=== PATIENT | male | born 1995 | race Caucasian/White ===

== ENCOUNTER 2018-11-10 16:40 | Emergency (ER) | payer OTHER ==
[2018-11-10 16:49] VITALS: RESP 18
[2018-11-10] MEDS ORDERED: IPRATROPIUM-ALBUTEROL 3 ML NEB INHALATION STA (17:06)
[2018-11-10] MEDS ORDERED: SODIUM CHLORIDE 0.9% 500 ML 500 ML IV STA (17:07)
[2018-11-10] MEDS ORDERED: SODIUM CHLORIDE 0.9% 1,000 ML IV STA (17:07)
[2018-11-10] MEDS ORDERED: ONDANSETRON 4 MG/2 ML VIAL IVP STA (17:15)
--- NOTE | 2018-11-10 17:32 | ED ---
General Adult HPI - General Chief complaint: GI Bleed Stated complaint: diarrhea, nausea Time Seen by Provider: 11/10/18 17:00 Source: patient, RN notes reviewed, old records reviewed Mode of arrival: ambulatory Limitations: no limitations - History of Present Illness Initial comments: 22-year-old male patient with past medical history of left inguinal hernia status post repair presents to ED with approximately 2 days of nausea vomiting and diarrhea. Patient states that he has vomited approximately 5 times both today and yesterday. Patient states that he is having watery diarrhea approximately once to twice an hour. Patient reports that he had diarrhea with a mild amount of bright red blood approximately 3 times today. Patient states that he is having diffuse abdominal pain and cramping, nonlocalized last 2 days. Describes the pain as a cramping sensation. Pt complains of mild fever/ chills the last two days. Patient additionally complains of shortness of breath today. Pt denies chest pain. Patient reports that he works at a [employer] and has had recent exposure to both influenza and Clostridium difficile. Patient denies other complaints. Systemic: Pt denies rash. Pt denies weakness, night sweats, weight loss. Neuro: Pt denies headache, visual disturbances, syncope. HEENT: Pt denies ocular discharge or irritation, otalgia, rhinorrhea, pharyngitis or notable lymphadenopathy. Cardiopulmonary: Pt denies chest pain, SOB, heart palpitations, dyspnea on exertion. Abdominal/GI: Pt denies abdominal pain, n/v/d. : Pt denies dysuria, burning w/ urination, frequency/urgency. Denies new onset urinary or bowel incontinence. MSK: Pt denies myalgia, loss of strength or function in extremities. Neuro: Pt denies new onset weakness, paresthesias. - Related Data Home Medications Medication Instructions Recorded Confirmed Cholecalciferol (Vitamin D3) 2,000 unit PO DAILY 11/10/18 11/10/18 [Vitamin D3] Multivitamin,Therapeutic [Thera] 1 tab PO DAILY 11/10/18 11/10/18 Previous Rx's Medication Instructions Recorded Ondansetron Odt [Zofran ODT] 4 mg PO Q8HR PRN #20 tab 11/10/18 Allergies Allergy/AdvReac Type Severity Reaction Status Date / Time No Known Allergies Allergy Verified 11/10/18 17:27 Review of Systems ROS Statement: Those systems with pertinent positive or pertinent negative responses have been documented in the HPI. ROS Other: All systems not noted in ROS Statement are negative. Past Medical History Past Medical History: No Reported History Additional Past Medical History / Comment(s): migraines, arthritis in nancy ankles , History of Any Multi-Drug Resistant Organisms: C-DIFF Date of last positivie culture/infection: 2013 MDRO Source:: stool Past Surgical History: Hernia Repair, Orthopedic Surgery Additional Past Surgical History / Comment(s): RT ANKLE Past Anesthesia/Blood Transfusion Reactions: Motion Sickness Past Psychological History: No Psychological Hx Reported, Anxiety, Bipolar, Depression Smoking Status: Former smoker Past Alcohol Use History: None Reported Past Drug Use History: Marijuana - Past Family History Mother Family Medical History: No Reported History General Exam - General Exam Comments Initial Comments: Constitutional: NAD, AOX3. HEENT: NC/AT, trachea midline, neck supple, no lymphadenopathy. Posterior pharynx non erythematous, without exudates. External ears appear normal, without discharge. Mucous membranes moist. Eyes PERRLA, EOM intact. There is no scleral icterus. No pallor noted. Cardiopulmonary: RRR, no murmurs, rubs or gallops, no JVD noted. Lungs CTAB in anterior and posterior cross. No peripheral edema. Abdominal exam: Abdomen soft and non-distended. Abdomen mildly tender to palpation in suprapubic region. Bowel sounds active in LLQ. No hepatosplenomegaly. No ecchymosis. Mild amount of L flank tenderness. Neuro: CN II-XII grossly intact. No nuchal rigidity. MSK: No posterior calf tenderness bilaterally, homans sign negative bilaterally. Posterior tibialis and radial pulse +2 bilaterally. Sensation intact in upper and lower extremities. Full active ROM in upper and lower extremities, 5/5 stregnth. Limitations: no limitations Course Vital Signs 11/10/18 11/10/18 11/10/18 16:46 17:30 19:50 Temperature 98.5 F 98.1 F Pulse Rate 82 82 81 Respiratory 18 18 Rate Blood Pressure 131/84 136/80 O2 Sat by Pulse 100 100 Oximetry Medical Decision Making - Medical Decision Making 22-year-old male patient with past medical history of left inguinal hernia status post repair presents to ED with approximately 2 days of nausea vomiting and diarrhea. Patient states that he has vomited approximately 5 times both today and yesterday. Patient states that he is having watery diarrhea approximately once to twice an hour. Patient reports that he had diarrhea with a mild amount of bright red blood approximately 3 times today. Patient states that he is having diffuse abdominal pain and cramping, nonlocalized last 2 days. Describes the pain as a cramping sensation. Pt complains of mild fever/ chills the last two days. Patient additionally complains of mild shortness of breath today. Pt denies chest pain Pt denies all other complaints. Pt VSS, afebrile. Physical exam displayed: Abdomen soft and non-distended. Abdomen mildly tender to palpation in suprapubic region. Bowel sounds active in LLQ. No hepatosplenomegaly. No ecchymosis. Mild amount of L flank tenderness. Cardiopulmonary exam wnl. Laboratory investigations revealed non-impressive CBC. Hemoglobin 17.6, at baseline for patient. CMP non-impressive. D-dimer negative. UA noncompressive. Influenza negative, C. diff negative. Stool occult blood was positive. Chest x-ray displayed no acute process. EKG not concerning for acute ischemia. Patient improved with fluid hydration, Zofran. Patient not actively vomiting, not having any diarrhea. Patient tolerating by mouth intake in exam room. Patient comfortable with discharge. Patient to follow up with primary care provider tomorrow for continued evaluation of n/v and evaluation of possible rectal bleeding. Patient prescribed Zofran to use as needed for nausea. Patient educated at length about BRAT diet, verbalized understanding. Patient to return to ED if new signs symptoms develop or if conditions worsen in anyway. Case discussed at length and seen by Dr. Pacheco. - Lab Data Result diagrams: 11/10/18 17:30 11/10/18 17:30 Lab Results 11/10/18 11/10/18 11/10/18 Range/Units 17:30 17:30 17:30 WBC 9.4 (3.8-10.6) k/uL RBC 5.75 (4.30-5.90) m/uL Hgb 17.6 H (13.0-17.5) gm/dL Hct 51.4 (39.0-53.0) % MCV 89.4 (80.0-100.0) fL MCH 30.6 (25.0-35.0) pg MCHC 34.3 (31.0-37.0) g/dL RDW 12.7 (11.5-15.5) % Plt Count 159 (150-450) k/uL Neutrophils % 90 % Lymphocytes % 3 % Monocytes % 5 % Eosinophils % 1 % Basophils % 0 % Neutrophils # 8.4 H (1.3-7.7) k/uL Lymphocytes # 0.3 L (1.0-4.8) k/uL Monocytes # 0.5 (0-1.0) k/uL Eosinophils # 0.1 (0-0.7) k/uL Basophils # 0.0 (0-0.2) k/uL D-Dimer 0.19 (<0.60) mg/L FEU Sodium 139 (137-145) mmol/L Potassium 4.2 (3.5-5.1) mmol/L Chloride 106 (98-107) mmol/L Carbon Dioxide 22 (22-30) mmol/L Anion Gap 11 mmol/L BUN 12 (9-20) mg/dL Creatinine 0.73 (0.66-1.25) mg/dL Est GFR (CKD-EPI)AfAm >90 (>60 ml/min/1.73 sqM) Est GFR (CKD-EPI)NonAf >90 (>60 ml/min/1.73 sqM) Glucose 119 H (74-99) mg/dL Plasma Lactic Acid Stef (0.7-2.0) mmol/L Calcium 9.9 (8.4-10.2) mg/dL Total Bilirubin 1.4 H (0.2-1.3) mg/dL AST 20 (17-59) U/L ALT 29 (21-72) U/L Alkaline Phosphatase 68 (38-126) U/L Total Protein 7.3 (6.3-8.2) g/dL Albumin 4.7 (3.5-5.0) g/dL Amylase 65 (30-110) U/L Lipase 21 L (23-300) U/L Urine Color Urine Appearance (Clear) Urine pH (5.0-8.0) Ur Specific Buena (1.001-1.035) Urine Protein (Negative) Urine Glucose (UA) (Negative) Urine Ketones (Negative) Urine Blood (Negative) Urine Nitrite (Negative) Urine Bilirubin (Negative) Urine Urobilinogen (<2.0) mg/dL Ur Leukocyte Esterase (Negative) Stool Occult Blood (Negative) C. difficile (EIA) Intrp (Negative) Influenza Type A RNA (Not Detectd) Influenza Type B (PCR) (Not Detectd) 11/10/18 11/10/18 11/10/18 Range/Units 17:30 17:30 17:48 WBC (3.8-10.6) k/uL RBC (4.30-5.90) m/uL Hgb (13.0-17.5) gm/dL Hct (39.0-53.0) % MCV (80.0-100.0) fL MCH (25.0-35.0) pg MCHC (31.0-37.0) g/dL RDW (11.5-15.5) % Plt Count (150-450) k/uL Neutrophils % % Lymphocytes % % Monocytes % % Eosinophils % % Basophils % % Neutrophils # (1.3-7.7) k/uL Lymphocytes # (1.0-4.8) k/uL Monocytes # (0-1.0) k/uL Eosinophils # (0-0.7) k/uL Basophils # (0-0.2) k/uL D-Dimer (<0.60) mg/L FEU Sodium (137-145) mmol/L Potassium (3.5-5.1) mmol/L Chloride (98-107) mmol/L Carbon Dioxide (22-30) mmol/L Anion Gap mmol/L BUN (9-20) mg/dL Creatinine (0.66-1.25) mg/dL Est GFR (CKD-EPI)AfAm (>60 ml/min/1.73 sqM) Est GFR (CKD-EPI)NonAf (>60 ml/min/1.73 sqM) Glucose (74-99) mg/dL Plasma Lactic Acid Stef 1.8 (0.7-2.0) mmol/L Calcium (8.4-10.2) mg/dL Total Bilirubin (0.2-1.3) mg/dL AST (17-59) U/L ALT (21-72) U/L Alkaline Phosphatase (38-126) U/L Total Protein (6.3-8.2) g/dL Albumin (3.5-5.0) g/dL Amylase (30-110) U/L Lipase (23-300) U/L Urine Color Urine Appearance (Clear) Urine pH (5.0-8.0) Ur Specific Buena (1.001-1.035) Urine Protein (Negative) Urine Glucose (UA) (Negative) Urine Ketones (Negative) Urine Blood (Negative) Urine Nitrite (Negative) Urine Bilirubin (Negative) Urine Urobilinogen (<2.0) mg/dL Ur Leukocyte Esterase (Negative) Stool Occult Blood Positive (Negative) C. difficile (EIA) Intrp (Negative) Influenza Type A RNA Not Detected (Not Detectd) Influenza Type B (PCR) Not Detected (Not Detectd) 11/10/18 11/10/18 Range/Units 17:48 18:50 WBC (3.8-10.6) k/uL RBC (4.30-5.90) m/uL Hgb (13.0-17.5) gm/dL Hct (39.0-53.0) % MCV (80.0-100.0) fL MCH (25.0-35.0) pg MCHC (31.0-37.0) g/dL RDW (11.5-15.5) % Plt Count (150-450) k/uL Neutrophils % % Lymphocytes % % Monocytes % % Eosinophils % % Basophils % % Neutrophils # (1.3-7.7) k/uL Lymphocytes # (1.0-4.8) k/uL Monocytes # (0-1.0) k/uL Eosinophils # (0-0.7) k/uL Basophils # (0-0.2) k/uL D-Dimer (<0.60) mg/L FEU Sodium (137-145) mmol/L Potassium (3.5-5.1) mmol/L Chloride (98-107) mmol/L Carbon Dioxide (22-30) mmol/L Anion Gap mmol/L BUN (9-20) mg/dL Creatinine (0.66-1.25) mg/dL Est GFR (CKD-EPI)AfAm (>60 ml/min/1.73 sqM) Est GFR (CKD-EPI)NonAf (>60 ml/min/1.73 sqM) Glucose (74-99) mg/dL Plasma Lactic Acid Stef (0.7-2.0) mmol/L Calcium (8.4-10.2) mg/dL Total Bilirubin (0.2-1.3) mg/dL AST (17-59) U/L ALT (21-72) U/L Alkaline Phosphatase (38-126) U/L Total Protein (6.3-8.2) g/dL Albumin (3.5-5.0) g/dL Amylase (30-110) U/L Lipase (23-300) U/L Urine Color Yellow Urine Appearance Clear (Clear) Urine pH 7.5 (5.0-8.0) Ur Specific Buena 1.009 (1.001-1.035) Urine Protein Negative (Negative) Urine Glucose (UA) Negative (Negative) Urine Ketones Negative (Negative) Urine Blood Negative (Negative) Urine Nitrite Negative (Negative) Urine Bilirubin Negative (Negative) Urine Urobilinogen <2.0 (<2.0) mg/dL Ur Leukocyte Esterase Negative (Negative) Stool Occult Blood (Negative) C. difficile (EIA) Intrp Negative (Negative) Influenza Type A RNA (Not Detectd) Influenza Type B (PCR) (Not Detectd) - EKG Data -: EKG Interpreted by Me (and dr pacheco ) EKG Comments: Ventricular rate 80,. For 152, QRS 92, QT/QTC 370/431. Normal sinus rhythm, normal EKG. Disposition Clinical Impression: Viral gastroenteritis Disposition: HOME SELF-CARE Condition: Stable Instructions: Gastroenteritis (ED) Additional Instructions: Patient to adhere to previously discussed treatment plan and will take medication(s) as directed. Patient to follow up with PCP in 1-2 days. Patient to return to ED if symptoms do not improve. Prescriptions: Ondansetron Odt [Zofran ODT] 4 mg PO Q8HR PRN #20 tab PRN Reason: Nausea Is patient prescribed a controlled substance at d/c from ED?: No Referrals: Kamaljit Martinez DO [Primary Care Provider] - 1-2 days Time of Disposition: 20:04
[2018-11-10 17:42] LABS: Basophils % (A) 0 %; Eosinophils # (A) 0.1 k/uL (0-0.7); Eosinophils % (A) 1 %; HCT 51.4 % (39.0-53.0); HGB 17.6 gm/dL (13.0-17.5); Lymphocytes # (A) 0.3 k/uL (1.0-4.8); Lymphocytes % (A) 3 %; MCH 30.6 pg (25.0-35.0); MCHC 34.3 g/dL (31.0-37.0); MCV 89.4 fL (80.0-100.0); Mean Platelet Volume 6.9; Monocytes # (A) 0.5 k/uL (0-1.0); Monocytes % (A) 5 %; Neutrophils # (A) 8.4 k/uL (1.3-7.7); Neutrophils % (A) 90 %; Platelet Count 159 k/uL (150-450); RBC 5.75 m/uL (4.30-5.90); RDW 12.7 % (11.5-15.5); WBC 9.4 k/uL (3.8-10.6)
[2018-11-10 17:53] LABS: ALT 29 U/L (21-72); AST 20 U/L (17-59); Albumin 4.7 g/dL (3.5-5.0); Alkaline Phosphatase 68 U/L (38-126); Amylase 65 U/L (30-110); Anion Gap 11 mmol/L; Blood Urea Nitrogen 12 mg/dL (9-20); Calcium 9.9 mg/dL (8.4-10.2); Carbon Dioxide 22 mmol/L (22-30); Chloride 106 mmol/L (98-107); Glucose 119 mg/dL (74-99); Lipase 21 U/L (23-300); Potassium 4.2 mmol/L (3.5-5.1); Sodium 139 mmol/L (137-145); Total Bilirubin 1.4 mg/dL (0.2-1.3); Total Protein 7.3 g/dL (6.3-8.2)
--- NOTE | 2018-11-10 18:09 | XR ---
EXAMINATION TYPE: XR chest 2V DATE OF EXAM: 11/10/2018 COMPARISON: 01/17/2016 HISTORY: Chest pain TECHNIQUE: Frontal and lateral views of the chest are obtained. FINDINGS: Heart and mediastinum are normal. Lungs are clear. Diaphragm is normal. Bony thorax is int act. Pulmonary vascularity is normal. IMPRESSION: Normal chest. No change.
[2018-11-10] MEDS ORDERED: ACETAMINOPHEN TAB 325 MG TAB PO STA (19:07)
[2018-11-10 19:09] LABS: Appearance,Urine Clear (Clear); Bilirubin,Urine Negative (Negative); Blood,Urine Negative (Negative); Color,Urine Yellow; Glucose,Urine (UA) Negative (Negative); Ketones,Urine Negative (Negative); Leukocyte Esterase,Urine Negative (Negative); Nitrite,Urine Negative (Negative); PH, Urine 7.5 (5.0-8.0); Protein,Urine Negative (Negative); Specific Gravity,Urine 1.009 (1.001-1.035); Urobilinogen,Urine <2.0 mg/dL (<2.0)
[2018-11-10 19:53] VITALS: BP 136/80; PULSE 81; TEMP 98.1
== END 2018-11-10 20:18 | disposition home or self-care (01) ==
LOC: EC 16:40
DX: A08.4 Viral intestinal infection, unspecified (principal); Z87.891 Personal history of nicotine dependence
CPT/HCPCS: 36415; 94640; 93005; 85379; 80053; 82150; 83605; 83690; 85025; 82272; 81003; 87324; 87502; 71046; 99285; 96374; 96361 ×2; J2405

== ENCOUNTER 2019-03-11 00:19 | Emergency (ER) | payer OTHER ==
[2019-03-11 00:25] VITALS: BP 117/75; PULSE 78; RESP 20; TEMP 98.5
[2019-03-11] MEDS ORDERED: KETOROLAC 60 MG/2 ML VIAL IM STA (00:32)
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
--- NOTE | 2019-03-11 01:16 | XR ---
History: ITS.REASON XR Reason: Pain Exam: XR RIGHT ELBOW 3 views Comparison: None available FINDINGS: Possible joint effusion suggested with possibility of occult fracture not excluded. No fracture plane identified at this time. No dislocation. IMPRESSION: Possible joint effusion suggested with possibility of occult fracture not excluded. No fracture plane identified at this time. No dislocation.
--- NOTE | 2019-03-11 01:17 | XR ---
History: ITS.REASON XR Reason: Pain Exam: XR RIGHT FOREARM 2 views Comparison: None available IMPRESSION: No fracture.
== END 2019-03-11 01:40 | disposition home or self-care (01) ==
LOC: EC 00:19
DX: S52.91XA Unspecified fracture of right forearm, initial encounter for closed fracture (principal); Z87.891 Personal history of nicotine dependence; W01.198A Fall on same level from slipping, tripping and stumbling with subsequent striking against other object, initial encounter; Y93.89 Activity, other specified; Y92.59 Other trade areas as the place of occurrence of the external cause
CPT/HCPCS: 73080; 73090; 99283; 29125; 96372; J1885

== ENCOUNTER 2019-03-16 09:01 | Observation (INO) | payer OTHER ==
[2019-03-16] MEDS ORDERED: PANTOPRAZOLE 40 MG/10 ML VIAL IVP STA (09:10)
--- NOTE | 2019-03-16 09:30 | ED ---
General Adult HPI - General Chief complaint: GI Bleed Stated complaint: GI bleed Time Seen by Provider: 03/16/19 09:10 Source: patient, EMS Mode of arrival: EMS Limitations: no limitations - History of Present Illness Initial comments: Dictation was produced using [employer] dictation software. please excuse any grammatical, word or spelling errors. Chief Complaint: 23-year-old male with no significant past medical history pr esents with hematemesis. History of Present Illness: She is a 23-year-old male with bright red blood during episode of vomiting today. Patient states she's been having dark stools for the last week and a half. He's had episodes like this in the past most recently 2 months ago. Gets these episodes approximately once every other 2 months. States that he has been ignoring the symptoms usually however today he vomited a considerable amount of bright red blood. He does report some lightheadedness. His significant other does report him appearing slightly pale. Patient has never sought medical attention for this in the past. Patient denies any symptoms at rest. He only had one episode today. The ROS documented in this emergency department record has been reviewed and confirmed by me. Those systems with pertinent positive or negative responses have been documented in the HPI. All other systems are other negative and/or noncontributory. PHYSICAL EXAM: General Impression: Alert and oriented x3, not in acute distress HEENT: Normocephalic atraumatic, extra-ocular movements intact, pupils equal and reactive to light bilaterally, mucous membranes moist. Cardiovascular: Heart regular rate and rhythm, S1&S2 audible, no murmurs, rubs or gallops Chest: Lungs clear to auscultation bilaterally, no rhonchi, no wheeze, no rales Abdomen: Bowel sounds present, abdomen soft, non-tender, non-distended, no organomegaly Musculoskeletal: Pulses present and equal in all extremities, no peripheral edema Motor: no focal deficits noted Neurological: CN II-XII grossly intact, no focal motor or sensory deficits noted Skin: Intact with no visualized rashes, slight pallor Psych: Normal affect and mood ED course: 23-year-old male presents with GI bleed. At this point there is a high clinical suspicion of peptic ulcer versus Liberty-Echevarria tear given duration of symptoms. He does report some symptoms of symptomatic anemia and does appear slightly pale. Eyes upon arrival are within acceptable limits.Laboratory evaluation obtained. Hemoglobin stable 14.7. Rest of CBC is unremarkable. Coag panel is negative. Metabolic panel is negative. Patient given 80 mg of IV Protonix. Patient states that he's been trying to get appointment with GI specialist however they did not accept his insurance. Patient requests that he be admitted to observation with GI consultation. - Related Data Home Medications Medication Instructions Recorded Confirmed Multivitamins, Thera [Multivitamin 1 tab PO DAILY 03/16/19 03/16/19 (formulary)] Allergies Allergy/AdvReac Type Severity Reaction Status Date / Time No Known Allergies Allergy Verified 03/16/19 09:13 Review of Systems ROS Statement: Those systems with pertinent positive or pertinent negative responses have been documented in the HPI. ROS Other: All systems not noted in ROS Statement are negative. Past Medical History Past Medical History: GI Bleed Additional Past Medical History / Comment(s): migraines, arthritis in nancy ankles, PUD History of Any Multi-Drug Resistant Organisms: C-DIFF Date of last positivie culture/infection: 2013 MDRO Source:: stool Past Surgical History: Hernia Repair, Orthopedic Surgery Additional Past Surgical History / Comment(s): RT ANKLE Past Anesthesia/Blood Transfusion Reactions: Motion Sickness Past Psychological History: No Psychological Hx Reported, Anxiety, Bipolar, Depression Smoking Status: Former smoker Past Alcohol Use History: None Reported Past Drug Use History: Marijuana - Past Family History Mother Family Medical History: No Reported History General Exam Limitations: no limitations Course Vital Signs 03/16/19 09:06 Temperature 98 F Pulse Rate 85 Respiratory 85 H Rate Blood Pressure 130/80 O2 Sat by Pulse 97 Oximetry Medical Decision Making - Lab Data Result diagrams: 03/16/19 09:25 03/16/19 09:25 Lab Results 03/16/19 03/16/19 03/16/19 Range/Units 09:25 09:25 09:25 WBC 4.6 (3.8-10.6) k/uL RBC 5.05 (4.30-5.90) m/uL Hgb 14.7 (13.0-17.5) gm/dL Hct 45.6 (39.0-53.0) % MCV 90.3 (80.0-100.0) fL MCH 29.2 (25.0-35.0) pg MCHC 32.3 (31.0-37.0) g/dL RDW 13.0 (11.5-15.5) % Plt Count 177 (150-450) k/uL Neutrophils % 63 % Lymphocytes % 23 % Monocytes % 6 % Eosinophils % 4 % Basophils % 1 % Neutrophils # 2.9 (1.3-7.7) k/uL Lymphocytes # 1.0 (1.0-4.8) k/uL Monocytes # 0.3 (0-1.0) k/uL Eosinophils # 0.2 (0-0.7) k/uL Basophils # 0.0 (0-0.2) k/uL PT 10.6 (9.0-12.0) sec INR 1.0 (<1.2) APTT 24.6 (22.0-30.0) sec Sodium 141 (137-145) mmol/L Potassium 4.5 (3.5-5.1) mmol/L Chloride 107 (98-107) mmol/L Carbon Dioxide 25 (22-30) mmol/L Anion Gap 9 mmol/L BUN 12 (9-20) mg/dL Creatinine 0.63 L (0.66-1.25) mg/dL Est GFR (CKD-EPI)AfAm >90 (>60 ml/min/1.73 sqM) Est GFR (CKD-EPI)NonAf >90 (>60 ml/min/1.73 sqM) Glucose 90 (74-99) mg/dL Calcium 9.2 (8.4-10.2) mg/dL Total Bilirubin 0.5 (0.2-1.3) mg/dL AST 26 (17-59) U/L ALT 17 L (21-72) U/L Alkaline Phosphatase 59 (38-126) U/L Total Protein 6.7 (6.3-8.2) g/dL Albumin 4.5 (3.5-5.0) g/dL Disposition Clinical Impression: Hematemesis Disposition: [facility] Condition: Fair Referrals: Kamaljit Martinez DO [Primary Care Provider] - 1-2 days Decision Time: 10:29
[2019-03-16 09:47] LABS: Basophils % (A) 1 %; Eosinophils # (A) 0.2 k/uL (0-0.7); Eosinophils % (A) 4 %; HCT 45.6 % (39.0-53.0); HGB 14.7 gm/dL (13.0-17.5); Lymphocytes % (A) 23 %; MCH 29.2 pg (25.0-35.0); MCHC 32.3 g/dL (31.0-37.0); MCV 90.3 fL (80.0-100.0); Mean Platelet Volume 6.7; Monocytes # (A) 0.3 k/uL (0-1.0); Monocytes % (A) 6 %; Neutrophils # (A) 2.9 k/uL (1.3-7.7); Neutrophils % (A) 63 %; Platelet Count 177 k/uL (150-450); RBC 5.05 m/uL (4.30-5.90); WBC 4.6 k/uL (3.8-10.6)
[2019-03-16 10:03] LABS: ALT 17 U/L (21-72); AST 26 U/L (17-59); Albumin 4.5 g/dL (3.5-5.0); Alkaline Phosphatase 59 U/L (38-126); Anion Gap 9 mmol/L; Blood Urea Nitrogen 12 mg/dL (9-20); Calcium 9.2 mg/dL (8.4-10.2); Carbon Dioxide 25 mmol/L (22-30); Chloride 107 mmol/L (98-107); Glucose 90 mg/dL (74-99); Potassium 4.5 mmol/L (3.5-5.1); Sodium 141 mmol/L (137-145); Total Bilirubin 0.5 mg/dL (0.2-1.3); Total Protein 6.7 g/dL (6.3-8.2)
[2019-03-16 10:08] LABS: Partial Thromboplastin Time 24.6 sec (22.0-30.0); Prothrombin Time 10.6 sec (9.0-12.0)
[2019-03-16] MEDS ORDERED: NALOXONE 0.4 MG/ML 1 ML VIAL IV PRN (10:26)
[2019-03-16] MEDS ORDERED: ACETAMINOPHEN TAB 325 MG TAB PO PRN (10:26)
[2019-03-16] MEDS: SODIUM CHLORIDE 0.9% 1,000 ML IV SCH ×2 (11:00→20:09)
--- NOTE | 2019-03-16 14:07 | P.HPIM ---
History of Present Illness There is a pleasant 23-year-old gentleman came in with complaints of hematemesis which started today morning. Patient had multiple such episodes in the past never 6 medical attention for that and never had any upper GI endoscopy. P atient denied using any nonsteroidal anti-inflammatory is denied any alcohol use or smoking. Patient had significant amount of hematemesis when he was 15 or 16-year-old. Is complaining of some lightheadedness. Hemoglobin is 14.7 which is expected to drop a little bit had only 1 episode of hematemesis today. Patient presently is feeling okay and not much nauseous at this time Review of Systems REVIEW OF SYSTEMS: CONSTITUTIONAL: No fever, no malaise, no fatigue. HEENT: No recent visual problems or hearing problems. Denied any sore throat. CARDIOVASCULAR: No chest pain, orthopnea, PND, no palpitations, no syncope. PULMONARY: No shortness of breath, no cough, no hemoptysis. GASTROINTESTINAL: No diarrhea, no nausea, no vomiting, no abdominal pain. NEUROLOGICAL: No headaches, no weakness, no numbness. HEMATOLOGICAL: Denies any bleeding or petechiae. GENITOURINARY: Denies any burning micturition, frequency, or urgency. MUSCULOSKELETAL/RHEUMATOLOGICAL: Denies any joint pain, swelling, or any muscle pain. ENDOCRINE: Denies any polyuria or polydipsia. The rest of the 14-point review of systems is negative. Past Medical History Past Medical History: GI Bleed, Osteoarthritis (OA) Additional Past Medical History / Comment(s): Upper GI bleed, past PUD, past migraines, arthritis in nancy ankles History of Any Multi-Drug Resistant Organisms: C-DIFF Date of last positivie culture/infection: 2013 MDRO Source:: stool Past Surgical History: Hernia Repair, Orthopedic Surgery Additional Past Surgical History / Comment(s): R ankle arthroscopic surgery to remove cartlidge, L inguinal hernia repair with mesh. Past Anesthesia/Blood Transfusion Reactions: Motion Sickness Smoking Status: Never smoker - Past Family History Mother Family Medical History: No Reported History Additional Family Medical History / Comment(s): Mother has mental health issues. Father Family Medical History: CVA/TIA Additional Family Medical History / Comment(s): Father has possible had a CVA Medications and Allergies Home Medications Medication Instructions Recorded Confirmed Type Multivitamins, Thera [Multivitamin 1 tab PO DAILY 03/16/19 03/16/19 History (formulary)] Allergies Allergy/AdvReac Type Severity Reaction Status Date / Time No Known Allergies Allergy Verified 03/16/19 09:13 Physical Exam Vitals: Vital Signs Temp Pulse Resp BP Pulse Ox 03/16/19 13:18 70 18 124/80 98 03/16/19 09:06 98 F 85 85 H 130/80 97 Intake and Output 03/15/19 03/16/19 03/16/19 22:59 06:59 14:59 Other: Weight 88.451 kg PHYSICAL EXAMINATION: GENERAL: The patient is alert and oriented x3, not in any acute distress. Well developed, well nourished. HEENT: Pupils are round and equally reacting to light. EOMI. No scleral icterus. No conjunctival pallor. Normocephalic, atraumatic. No pharyngeal erythema. No thyromegaly. CARDIOVASCULAR: S1 and S2 present. No murmurs, rubs, or gallops. PULMONARY: Chest is clear to auscultation, no wheezing or crackles. ABDOMEN: Soft, nontender, nondistended, normoactive bowel sounds. No palpable organomegaly. MUSCULOSKELETAL: No joint swelling or deformity. EXTREMITIES: No cyanosis, clubbing, or pedal edema. NEUROLOGICAL: Gross neurological examination did not reveal any focal deficits. SKIN: No rashes. Results CBC & Chem 7: 03/16/19 09:25 03/16/19 09:25 Labs: Abnormal Lab Results - Last 24 Hours (Table) 03/16/19 Range/Units 09:25 Creatinine 0.63 L (0.66-1.25) mg/dL ALT 17 L (21-72) U/L Thrombosis Risk Factor Assmnt - Choose All That Apply Any of the Below Risk Factors Present?: Yes Each Factor Represents 1 point: Minor surgery planned, Obesity (BMI >25) Other Risk Factors: No Other congenital or acquired thrombophilia - If yes, enter type in comment: No Thrombosis Risk Factor Assessment Total Risk Factor Score: 2 Thrombosis Risk Factor Assessment Level: Low Risk Assessment and Plan Plan: -Hematemesis: Possibly secondary to peptic ulcer disease. Patient was started on Protonix. Considering his previous episodes of hematemesis may benefit from upper GI endoscopy gastroenterology was consulted. -Marijuana use.
--- NOTE | 2019-03-16 14:25 | P.CONS ---
History of Present Illness - Reason for Consult Consult date: 03/16/19 Hematemesis Requesting physician: Jorge Kincaid - Chief Complaint Hematemesis - History of Present Illness 23-year-old male admitted with episodes of vomiting bright red blood darker color bowel movements for last one half weeks. Previous experience with bloody emesis about 2 months ago. Patient has a long-standing history of at least 5 years duration of chronic morning emesis sometimes bloody sometimes not. Denies weight loss fever or chills. No history of EGD. He also reports over the last few months she's noticed certain food substances being stuck in the lower esophageal region. Hemoglobin 14.7. Platelet 177. White count 4.6. INR 1.0. BUN 12. Creatinine 0.6. Review of Systems Constitutional: Denies fever, chills, sweats, weight gain, or loss. HEENT: Negative for migraines, blurred vision or loss, earaches, drainage, tinnitus, oral mucosal lesions, dysphagia, or odynophagia. Cardiac: Negative for chest pain, arrhythmias, or palpitation. Respiratory: Negative for shortness of breath, hemoptysis, cough, or sputum production. Gastrointestinal: See HPI for pertinent findings. Genitourinary: Negative for hematuria, urgency, frequency, polyuria, dysuria, or penile discharge. Musculoskeletal: Negative for muscle aches, swelling, arthritis, and arthralgias. Neurologic: Negative for stroke or TIA. Endocrine: Negative for thyroid problems. Skin: Negative for rash or itching. Psychiatric: Negative history for depression and anxiety Past Medical History Past Medical History: GI Bleed, Osteoarthritis (OA) Additional Past Medical History / Comment(s): Upper GI bleed, past PUD, past migraines, arthritis in nancy ankles History of Any Multi-Drug Resistant Organisms: C-DIFF Year Discovered:: 2013 MDRO Source:: stool Past Surgical History: Hernia Repair, Orthopedic Surgery Additional Past Surgical History / Comment(s): R ankle arthroscopic surgery to remove cartlidge, L inguinal hernia repair with mesh. Past Anesthesia/Blood Transfusion Reactions: Motion Sickness Smoking Status: Never smoker - Past Family History Mother Family Medical History: No Reported History Additional Family Medical History / Comment(s): Mother has mental health issues. Father Family Medical History: CVA/TIA Additional Family Medical History / Comment(s): Father has possible had a CVA Medications and Allergies Home Medications Medication Instructions Recorded Confirmed Type Multivitamins, Thera [Multivitamin 1 tab PO DAILY 03/16/19 03/16/19 History (formulary)] Allergies Allergy/AdvReac Type Severity Reaction Status Date / Time No Known Allergies Allergy Verified 03/16/19 09:13 Physical Exam Vitals: Vital Signs Temp Pulse Resp BP Pulse Ox 03/16/19 09:06 98 F 85 85 H 130/80 97 Intake and Output 03/15/19 03/16/19 03/16/19 22:59 06:59 14:59 Other: Weight 88.451 kg General appearance: The patient is alert, oriented, in no acute distress. HET: Head is normocephalic and atraumatic. Pupils are equal and reactive. O ropharynx is clear without lesions. Neck: Supple without lymphadenopathy. Trachea midline. Heart: S1 S2. Regular rate and rhythm. Lungs: No crackles or wheezes are heard. Abdomen: Soft, nontender, nondistended with bowel sounds. No peritoneal signs. No palpable organomegaly or masses. Extremities: Right arm sling. Normal skin color and turgor. No cyanosis, rash, ulceration, clubbing, or edema. Radial and pedal pulses are 2/4 bilaterally. Neurological: No focal deficits. Strength and sensation are grossly intact. Results CBC & Chem 7: 03/16/19 09:25 03/16/19 09:25 Labs: Abnormal Lab Results - Last 24 Hours (Table) 03/16/19 Range/Units 09:25 Creatinine 0.63 L (0.66-1.25) mg/dL ALT 17 L (21-72) U/L Assessment and Plan (1) Hematemesis Narrative/Plan: 23-year-old male with a long-standing history of at least 5 years duration of chronic morning nausea associated with emesis sometimes blood tinged sometimes not presents with acute hematemesis and reports of mild dysphagia in the lower distal esophageal region. 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 Current Visit: Yes Status: Acute Code(s): K92.0 - HEMATEMESIS SNOMED Code(s): 3190196 Plan: 1. Full liquids tonight and clear liquid breakfast followed by nothing by mouth EGD evaluation tomorrow afternoon. CBC monitoring. Protonix 40 mg daily. 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 The patient has indicated understanding and acceptance of the risks and procedures discussed. Thank you for this kind referral and the opportunity to participate in the care of your patient. This consultation was discussed with Dr. Dillon. The impres alesia and plan of care have been directed as dictated.
[2019-03-16] MEDS: PANTOPRAZOLE 40 MG/10 ML VIAL IV SCH (20:04)
[2019-03-16 22:20] VITALS: RESP 18
[2019-03-17] MEDS: SODIUM CHLORIDE 0.9% 1,000 ML IV SCH ×2 (03:31→12:56)
[2019-03-17 06:13] VITALS: TEMP 98.9
[2019-03-17] MEDS ORDERED: LACTATED RINGERS 1,000 ML IV SCH (06:21)
[2019-03-17] MEDS: PANTOPRAZOLE 40 MG/10 ML VIAL IV SCH (07:14)
[2019-03-17] MEDS ORDERED: SODIUM CHLORIDE 0.9% 1,000 ML IV ONE ×2 (13:34)
[2019-03-17] MEDS ORDERED: LIDOCAINE 1% INJ 10MG/ML (20 ML MDV) ONE (13:35)
[2019-03-17] MEDS ORDERED: MIDAZOLAM 2 MG/2 ML VIAL ONE (13:35)
[2019-03-17] MEDS ORDERED: KETAMINE 10 MG/ML 20 ML VIAL ONE (13:35)
[2019-03-17] MEDS ORDERED: PROPOFOL 10 MG/ML 20 ML VIAL IV ONE (13:35)
[2019-03-17] MEDS ORDERED: fentaNYL (PF) 50 MCG/ML 2 ML AMP ONE (13:35)
[2019-03-17] MEDS ORDERED: SODIUM CHLORIDE 0.9% 500 ML 500 ML IV ONE (13:55)
--- NOTE | 2019-03-17 14:08 | P.PCN ---
Date of Procedure: 03/17/19 Description of Procedure: BRIEF HISTORY: 23-year-old male admitted with episodes of vomiting bright red blood darker color bowel movements for last one half weeks. Previous experience with bloody emesis about 2 months ago. Patient has a long-standing history of at least 5 years duration of chronic morning emesis sometimes bloody sometimes not. Denies weight loss fever or chills. No history of EGD. He also reports over the last few months she's noticed certain food substances being stuck in the lower esophageal region. Hemoglobin 14.7. Platelet 177. White count 4.6. INR 1.0. BUN 12. Creatinine 0.6. PROCEDURE PERFORMED: Esophagogastroduodenoscopy with biopsy. PREOPERATIVE DIAGNOSIS: Hematemesis, intractable nausea and vomiting. ESTIMATED BLOOD LOSS: Minimal. IV sedation per anesthesia. PROCEDURE: After informed consent was obtained, the patient was brought into the endoscopy unit. IV sedation was administered by Anesthesia under continuous monitoring. Initially the Olympus GIF-140 video endoscope was inserted into the mouth. Esophagus intubated without any difficulty. It was gradually advanced into the stomach and duodenum and carefully examined. The bulb and the second part of the duodenum appeared normal, with biopsies taken. The scope at this time was withdrawn to the stomach, adequately insufflated with air, and upon careful examination, mucosa of the antrum, body, cardia and the fundus appeared grossly normal, there was however some scattered erythema in the antrum and body suggestive of mild gastritis with biopsies taken. The scope was then withdrawn into the esophagus. The GE junction was located at 39 cm from the incisors. 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 Plans were to take a mid esophageal biopsies however the patient began retching during the procedure making it unsafe for mid esophageal biopsies and the procedure was completed. The patient tolerated the procedure well. IMPRESSION: 1. Mild gastritis antrum and body, biopsied. Duodenal biopsies. 2. Some mild irritation in the distal esophagus likely secondary to Liberty- Echevarria tear. RECOMMENDATIONS: The findings of this examination were discussed with the patient and his fianc. Okay to resume diet. Would discharge on Protonix daily. Await pathology from biopsies. Would recommend discontinuing use of marijuana in the setting of intractable episodes of nausea and vomiting.
--- NOTE | 2019-03-17 14:23 | P.DS ---
Providers Date of admission: 03/16/19 10:27 Attending physician: Figueroa Vo Consults: 03/16/19 10:27 Consult Physician Urgent Consulting Provider: Moris Harris Consult Reason/Comments: Gi bleed Do you want consulting provider notified?: Yes Primary care physician: Kamaljit Martinez [facility] Course: 23-year-old admitted for hematemesis and patient had an upper GI endoscopy which showed esophagitis and gastritis and patient will be discharged on Protonix for a month. Patient was advised to quit marijuana. PHYSICAL EXAMINATION: GENERAL: The patient is alert and oriented x3, not in any acute distress. Well developed, well nourished. HEENT: Pupils are round and equally reacting to light. EOMI. No scleral icterus. No conjunctival pallor. Normocephalic, atraumatic. No pharyngeal erythema. No thyromegaly. CARDIOVASCULAR: S1 and S2 present. No murmurs, rubs, or gallops. PULMONARY: Chest is clear to auscultation, no wheezing or crackles. ABDOMEN: Soft, nontender, nondistended, normoactive bowel sounds. No palpable organomegaly. MUSCULOSKELETAL: No joint swelling or deformity. EXTREMITIES: No cyanosis, clubbing, or pedal edema. NEUROLOGICAL: Gross neurological examination did not reveal any focal deficits. SKIN: No rashes. Patient Condition at Discharge: Fair Plan - Discharge Summary Discharge Rx Participant: No New Discharge Prescriptions: New Pantoprazole Sodium [Protonix] 40 mg PO AC-BRKFST #30 tablet.dr Jones Action Multivitamins, Thera [Multivitamin (formulary)] 1 tab PO DAILY Discharge Medication List Multivitamins, Thera [Multivitamin (formulary)] 1 tab PO DAILY 03/16/19 [History] Pantoprazole Sodium [Protonix] 40 mg PO AC-BRKFST #30 tablet. 03/17/19 [Rx] Follow up Appointment(s)/Referral(s): Kamaljit Martinez DO [Primary Care Provider] - 3 Days Discharge Disposition: HOME SELF-CARE
[2019-03-17 14:56] VITALS: BP 133/75; PULSE 74
== END 2019-03-17 15:17 | disposition home or self-care (01) ==
LOC: EC 09:01 → 4MS4W 10:27
PROVIDERS: ADMIT Hospitalist; ATTEND Hospitalist
DX: K29.71 Gastritis, unspecified, with bleeding (principal); D64.9 Anemia, unspecified; K20.9 Esophagitis, unspecified; Z16.24 Resistance to multiple antibiotics; Z87.891 Personal history of nicotine dependence; Z87.11 Personal history of peptic ulcer disease; F12.90 Cannabis use, unspecified, uncomplicated; E66.9 Obesity, unspecified; Z68.29 Body mass index [BMI] 29.0-29.9, adult; Z81.8 Family history of other mental and behavioral disorders; Z82.3 Family history of stroke
CPT/HCPCS: 96376 ×2; 96361 ×3; 96374; 99285; 36415; 93005; 88305; 80053; 85025; 85610; 85730; 88342; 43239; G0378 ×2; J2250; J2001; J3010; J2704; C9113 ×2

== ENCOUNTER → 2019-12-22 | Outpatient (CLI) | payer OTHER ==
--- NOTE | 2019-12-22 16:55 | XR ---
EXAMINATION TYPE: XR lumbar spine 2 or 3V DATE OF EXAM: 12/22/2019 CLINICAL HISTORY: Strain injury with pain. TECHNIQUE: Frontal and lateral images of the lumbar spine are obtained. COMPARISON: None FINDINGS: There are 5 lumbar type vertebral bodies identified. The lumbar spine shows straightened alignment without evidence of acute fracture or dislocation. Vertebral body heights and disk space he ights are within normal limits. The overlying soft tissue appears unremarkable. IMPRESSION: As above.
== END | disposition home or self-care (01) ==
LOC: RADXRMAIN 16:34
PROVIDERS: ATTEND Emergency Medicine
DX: S39.012A Strain of muscle, fascia and tendon of lower back, initial encounter (principal)
CPT/HCPCS: 72100

== ENCOUNTER 2019-12-30 10:07 | Emergency (ER) | payer OTHER ==
[2019-12-30 10:17] VITALS: RESP 18
--- NOTE | 2019-12-30 10:48 | ED ---
URI HPI - General Chief Complaint: Upper Respiratory Infection Stated Complaint: SUKHWINDER Time Seen by Provider: 12/30/19 10:22 Source: patient Mode of arrival: ambulatory Limitations: no limitations - History of Present Illness Initial Comments: Patient is a 24-year-old male presenting to the emergency Department with complaints of upper respiratory type symptoms for the past week. Patient states he started having a mild cough as well as chest congestion, nasal drainage and the symptoms have progressed over the last week. He states he's been having in termittent fevers at home along with increase in chest congestion causing mild burning when he coughs. Patient states he has been coughing up phlegm. He denies any chest pain. He does have mild shortness of breath when he is doing activities. He denies any ear pain, sore throat, abdominal complaints, vomiting. He does have mild nausea. Patient states one of his children has tested positive for RSV. He denies history of asthma or COPD. He has no other complaints at this time. Upon arrival to the ER, his vital signs are stable. - Related Data Home Medications Medication Instructions Recorded Confirmed Multivitamins, Thera [Multivitamin 1 tab PO DAILY 03/16/19 03/16/19 (formulary)] Previous Rx's Medication Instructions Recorded Pantoprazole Sodium [Protonix] 40 mg PO AC-BRKFST #30 tablet. 03/17/19 Levofloxacin [Levaquin] 750 mg PO DAILY 7 Days #7 tab 12/30/19 Allergies Allergy/AdvReac Type Severity Reaction Status Date / Time No Known Allergies Allergy Verified 12/30/19 10:17 Review of Systems ROS Statement: Those systems with pertinent positive or pertinent negative responses have been documented in the HPI. ROS Other: All systems not noted in ROS Statement are negative. Past Medical History Past Medical History: GI Bleed, Osteoarthritis (OA) Additional Past Medical History / Comment(s): Upper GI bleed, past PUD, past mi graines, arthritis in nancy ankles History of Any Multi-Drug Resistant Organisms: C-DIFF Date of last positivie culture/infection: 2013 MDRO Source:: stool Past Surgical History: Hernia Repair, Orthopedic Surgery Additional Past Surgical History / Comment(s): R ankle arthroscopic surgery to remove cartlidge, L inguinal hernia repair with mesh. Past Anesthesia/Blood Transfusion Reactions: Motion Sickness Past Psychological History: No Psychological Hx Reported Smoking Status: Never smoker - Past Family History Mother Family Medical History: No Reported History Additional Family Medical History / Comment(s): Mother has mental health issues. Father Family Medical History: CVA/TIA Additional Family Medical History / Comment(s): Father has possible had a CVA General Exam - General Exam Comments Initial Comments: GENERAL: Well-appearing, well-nourished and in no acute distress. HEAD: Atraumatic, normocephalic. EYES: Pupils equal round and reactive to light, extraocular movements intact, sclera anicteric, conjunctiva are normal. ENT: TMs normal, nares patent, oropharynx clear without exudates. Moist mucous membranes. NECK: Normal range of motion, supple without lymphadenopathy or JVD. LUNGS: Breath sounds clear to auscultation bilaterally and equal. No wheezes rales or rhonchi. HEART: Regular rate and rhythm without murmurs, rubs or gallops. ABDOMEN: Soft, nontender, normoactive bowel sounds. No guarding, no rebound. No masses appreciated. : Deferred EXTREMITIES: Normal range of motion, no pitting or edema. No clubbing or cyanosis. NEUROLOGICAL: Normal speech, normal gait. PSYCH: Normal mood, normal affect. SKIN: Warm, Dry, normal turgor, no rashes or lesions noted. Limitations: no limitations Course Vital Signs 12/30/19 12/30/19 12/30/19 10:13 13:12 13:53 Temperature 98.3 F 98.8 F 98.6 F Pulse Rate 89 70 91 Respiratory 18 18 18 Rate Blood Pressure 110/63 114/75 122/73 O2 Sat by Pulse 98 98 97 Oximetry Medical Decision Making - Medical Decision Making Patient is a 24-year-old male presenting with upper respiratory takes symptoms for the past week. His vital signs are stable. His exam is unremarkable. Influenza test is negative. Chest x-ray reveals a new 1.1 cm left upper lung lesion raising concern for possible abscess. CT of the chest was then ordered. CT reveals bilateral upper lung nodules and nodular consolidation of uncertain etiology, atypical infections are in the differential. Patient was reassessed and vitals remained stable. He appears well. I discussed the findings with the patient. Patient will be started on Levaquin and will follow up with pulmonology. Patient is in agreement with this plan of care. Return parameters were discussed with the patient and he verbalized understanding. Case discussed with Dr. Rodriguez who agrees with this plan of care. - Lab Data Lab Results 12/30/19 Range/Units 10:30 Influenza Type A RNA Not Detected (Not Detectd) Influenza Type B (PCR) Not Detected (Not Detectd) Disposition Clinical Impression: Lung abscess Disposition: HOME SELF-CARE Condition: Stable Instructions (If sedation given, give patient instructions): Lung Abscess (DC) Additional Instructions: Please return to the Emergency Department if symptoms worsen or any other concerns. Take antibiotic as prescribed. May continue with Tylenol or Motrin for fever control. Follow up with PCP and travel guide as discussed. Prescriptions: Levofloxacin [Levaquin] 750 mg PO DAILY 7 Days #7 tab Is patient prescribed a controlled substance at d/c from ED?: No Referrals: None,Stated [Primary Care Provider] - 1-2 days Amy Ibarra MD [STAFF PHYSICIAN] - 1-2 days
--- NOTE | 2019-12-30 11:09 | XR ---
EXAMINATION TYPE: XR chest 2V DATE OF EXAM: 12/30/2019 COMPARISON: Chest x-ray November 10, 2018 HISTORY: Cough. TECHNIQUE: Frontal and lateral views of the chest are obtained. FINDINGS: There is chronic parenchymal change without suspicious new focal air space opacity, pleura l effusion, or pneumothorax seen bilaterally but suspicion for a 1.1 cm thick-walled cavitary lesion left upper lung over the posterior sixth rib. The cardiac silhouette size is within normal limits. The osseous structures are intact. IMPRESSION: Possible new 1.1 cm cavitary left upper lung lesion raising concern for possible pulmona ry abscess.
[2019-12-30] MEDS ORDERED: RX INFO: IV CONTRAST WAS GIVEN 1 EACH MISC MISCELLANE PRN (11:26)
--- NOTE | 2019-12-30 13:00 | CT ---
EXAMINATION TYPE: CT chest w con DATE OF EXAM: 12/30/2019 COMPARISON: Same day chest x-ray. HISTORY: Cough, congestion. Possible lung abscess on x-ray. CT DLP: 456.5 mGycm. Automated Exposure Control for Dose Reduction was Utilized. TECHNIQUE: CT scan of the thorax is performed following with IV Contrast, patient injected with 100 mL of Isovue 300. FINDINGS: LUNGS: Some focal patchy groundglass opacity posterior aspect right upper lobe axial image 10. . The re are additional scattered nodules and nodular infiltrates throughout the right upper lobe posterior ly for reference 8 mm right upper lobe nodule image 17. Posterior aspect left upper lobes and superio r aspect left lower lobes show scattered small nodules and/or nodular consolidation reference 9 x 7 m m lesion axial image 24. Immediately anterior to this corresponding to x-ray abnormality there is a 1 0 mm cystic lesion with mild thickened wall axial image 24. Coronal image 57 and shows wall thickness up to 3 mm superior left aspect and suspected adjacent 4 mm superior right nodule abutting this lesi on. Small 4 mm left basilar notch-like image 52. No pleural effusion or pneumothorax bilaterally. The tracheobronchial tree is patent. MEDIASTINUM: There are no greater than 1 cm hilar or mediastinal lymph nodes. No cardiomegaly or pe ricardial effusion is seen. OTHER: No additional significant abnormality is seen. IMPRESSION: Confirmation of mildly thick wall cyst over true cavity as eccentric wall thickening jenni ures under 4 mm. There are bilateral upper lung nodules and nodular consolidation of uncertain etiolo gy, atypical infections are in differential. Metastatic disease extremely unlikely but not entirely e xcluded with upper lobe distribution.
[2019-12-30 13:55] VITALS: BP 122/73; PULSE 91; TEMP 98.6
== END 2019-12-30 13:53 | disposition home or self-care (01) ==
LOC: EC 10:07
DX: J85.2 Abscess of lung without pneumonia (principal)
CPT/HCPCS: 87502; 71046; 71260; 99285; Q9967

== ENCOUNTER → 2020-02-05 | Outpatient (CLI) | payer OTHER ==
[2020-02-05 09:20] LABS: Basophils # (A) 0.1 k/uL (0-0.2); Basophils % (A) 1 %; Eosinophils # (A) 0.2 k/uL (0-0.7); Eosinophils % (A) 2 %; HGB 16.2 gm/dL (13.0-17.5); Lymphocytes # (A) 1.6 k/uL (1.0-4.8); Lymphocytes % (A) 21 %; MCH 29.6 pg (25.0-35.0); MCHC 32.4 g/dL (31.0-37.0); MCV 91.2 fL (80.0-100.0); Mean Platelet Volume 8.2; Monocytes # (A) 0.6 k/uL (0-1.0); Monocytes % (A) 8 %; Neutrophils # (A) 4.9 k/uL (1.3-7.7); Neutrophils % (A) 66 %; Platelet Count 189 k/uL (150-450); RBC 5.48 m/uL (4.30-5.90); RDW 12.5 % (11.5-15.5); WBC 7.5 k/uL (3.8-10.6)
[2020-02-05 09:44] LABS: ALT 18 U/L (4-49); African American GFR (CKD) >90 (>60 ml/min/1.73 sqM); Albumin 4.3 g/dL (3.5-5.0); Anion Gap 7 mmol/L; Blood Urea Nitrogen 9 mg/dL (9-20); Carbon Dioxide 28 mmol/L (22-30); Chloride 104 mmol/L (98-107); Glucose 94 mg/dL (74-99); Non-African American GFR(CKD) >90 (>60 ml/min/1.73 sqM); Sodium 139 mmol/L (137-145); Total Bilirubin 0.6 mg/dL (0.2-1.3)
[2020-02-05 09:46] LABS: AST 21 U/L (17-59); Alkaline Phosphatase 59 U/L (38-126); Potassium 4.6 mmol/L (3.5-5.1)
--- NOTE | 2020-02-05 12:28 | CT ---
EXAMINATION TYPE: CT chest w con DATE OF EXAM: 02/05/2020 COMPARISON: 12/30/2019 HISTORY: f/u lung abscess CT DLP: 346.5 mGycm Automated exposure control for dose reduction was used. CONTRAST: CT scan of the chest is performed with IV Contrast, patient injected with 100 mL of Isovue 300. FINDINGS: LUNGS: Right-sided nodules have increased in size for example right upper lobe pulmonary nodule now m easures 2.5 cm with cavitation whereas previously there are multiple smaller nodules seen. Also enlar ged on multifocal nodularity right upper lobe posterolaterally measuring approximately 2.4 cm versus 7.7 mm previously with small cavitary component. Left-sided pulmonary nodules totaling approximately 13-16 in number. Several are cavitary the largest within the left upper lobe measures 1.1 cm. MEDIASTINUM: There are no greater than 1 cm hilar or mediastinal lymph nodes. No pericardial effusi on is seen. Thoracic aorta is of normal caliber. The heart is not enlarged. UPPER ABDOMEN: No significant abnormality appreciated. OTHER: No additional significant abnormality is seen. IMPRESSION: 1. Enlarging nodules right lung with some of which demonstrating cavitation. A number of nodules thro ughout the left lung remains essentially unchanged with 1 slightly enlarged cavitary nodule. Correlat e for cavitary infection. Nodules of other etiology not excluded.
== END | disposition home or self-care (01) ==
LOC: RADCTMAIN 08:36
DX: R91.8 Other nonspecific abnormal finding of lung field (principal); J85.2 Abscess of lung without pneumonia
CPT/HCPCS: 80053; 85025; 71260; 36415; Q9967

== ENCOUNTER → 2020-05-16 | Outpatient (CLI) | payer OTHER ==
--- NOTE | 2020-05-16 15:55 | MR ---
EXAMINATION TYPE: MR lumbar spine wo/w con DATE OF EXAM: 05/16/2020 COMPARISON: Lumbar spine x-ray December 22, 2019 HISTORY: Lower Back Pain into Right thigh, Sciatic pain. Lumbar region radiculopathy per order TECHNIQUE: Multiplanar, multisequence images of the lumbar spine is performed without and with IV contrast, util izing 7.5 mL intravenous Gadavist FINDINGS: Sagittal images of the lumbar spine show vertebral body heights and alignment to appear sat isfactory. The intervertebral discs demonstrate mild disc desiccation L5-S1 level. Disc space height s are maintained. The conus medullaris is slightly low in position ending superior L2 level. No abnor mal signal or clumping of lumbosacral nerve roots. No significant spurring. The bone marrow signal in tensity is within normal limits. Axial images show T12-L1, L1-L2, and L2-L3 levels all to appear within normal limits. Axial images at L3-L4 level show mild broad disc bulge minimally effacing anterior thecal sac. Patent bilateral neural foramina. Axial images at L4-L5 level mild broad-based posterior disc protrusion minimally effacing anterior th ecal sac with mild left-sided anterior inferior neural foraminal narrowing. Axial images at L5-S1 level show right paracentral 7 mm round lesion sagittal image 9 somewhat higher intensity to disc space on T1-weighted images and fairly isointense on T2-weighted images. Structure measures roughly 6 x 4.5 mm AP diameter axial image 3. Some mass effect on the central S1 nerve note d on axial image 3. Likely disc herniation as is contiguous with the disc space. Paraspinal muscle bulk is maintained. No suspicious postcontrast enhancement seen. 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 This likely accounts for patient's radiculopathy type symptoms. Suspect disc herniation and/or fr ee fragment, but etiologies not excluded. Neurosurgical referral advised.
== END | disposition home or self-care (01) ==
LOC: RADMRIMAIN 14:59
PROVIDERS: ATTEND Internal Medicine
DX: M54.16 Radiculopathy, lumbar region (principal)
CPT/HCPCS: 72158; A9585

== ENCOUNTER → 2020-06-27 | Outpatient (CLI) | payer OTHER ==
--- NOTE | 2020-06-27 14:39 | CT ---
EXAMINATION TYPE: CT chest w con DATE OF EXAM: 06/27/2020 COMPARISON: 02/05/2020 HISTORY: Follow up for lung nodule. CT DLP: 540 mGycm Automated exposure control for dose reduction was used. CONTRAST: CT scan of the chest is performed with IV Contrast, patient injected with 100ml mL of Isovue 300. FINDINGS: LUNGS: Significant interval improvement in the overall size and number of previously noted partially cavitary nodules. There is some residual nodules within the right upper lobe totaling approximately 6 in number and measuring up to 5 mm versus the largest nodule previously measuring 2.5 cm. Small resi dual bulla is seen within the right upper lobe. Within the left lung there are also several residual nodules seen totaling approximately 4 in number and measuring up to 8 mm. No new nodules are seen. No evidence for focal consolidation or pleural effusion. MEDIASTINUM: There are no greater than 1 cm hilar or mediastinal lymph nodes. No pericardial effusi on is seen. Thoracic aorta is of normal caliber. The heart is not enlarged. UPPER ABDOMEN: No significant abnormality appreciated. OTHER: No additional significant abnormality is seen. IMPRESSION: 1.Significant interval improvement in the overall size and number of previously noted partially cavit ra nodules. See above
== END | disposition home or self-care (01) ==
LOC: RADCTMAIN 14:04
PROVIDERS: ATTEND Thoracic Surgery (Cardiothoracic Vascular Surgery)
DX: R91.8 Other nonspecific abnormal finding of lung field (principal); J18.9 Pneumonia, unspecified organism
CPT/HCPCS: 71260; Q9967

== ENCOUNTER → 2021-05-05 | Outpatient (CLI) | payer OTHER ==
--- NOTE | 2021-05-05 12:49 | US ---
EXAMINATION TYPE: US abdomen complete DATE OF EXAM: 05/05/2021 COMPARISON: NONE CLINICAL HISTORY: Abd Pain. N/V and pain near rib EXAM MEASUREMENTS: Liver Length: 16.3 cm Gallbladder Wall: 0.2 cm CBD: 0.3 cm Spleen: 12.2 cm Right Kidney: 10.1 x 5.1 x 5.2 cm Left Kidney: 9.2 x 4.5 x 5.7 cm Pancreas: wnl Liver: wnl Gallbladder: wnl Evidence for sonographic Quintero's sign: no CBD: wnl Spleen: wnl Right Kidney: wnl Left Kidney: wnl Upper IVC: wnl Abd Aorta: wnl The liver is homogenous. The intrahepatic portion of the IVC and proximal abdominal aorta are within normal limits. There is no evidence of cholelithiasis. Common bile duct is unremarkable. The visu alized portions of the pancreas are homogenous. The spleen is unremarkable. Kidneys are symmetric a nd free of hydronephrosis. No renal lesions are seen. IMPRESSION: No definite abdominal abnormality.
== END | disposition home or self-care (01) ==
LOC: RADUSWWP 08:20
PROVIDERS: ATTEND Internal Medicine
DX: R10.9 Unspecified abdominal pain (principal)
CPT/HCPCS: 76700

== ENCOUNTER 2021-10-21 09:51 | Emergency (ER) | payer OTHER ==
[2021-10-21 09:56] VITALS: BP 145/84; PULSE 81; RESP 17; TEMP 98.3
[2021-10-21] MEDS ORDERED: IBUPROFEN 600 MG TAB PO STA (10:11)
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
--- NOTE | 2021-10-21 11:05 | XR ---
EXAMINATION TYPE: XR ankle complete RT DATE OF EXAM: 10/21/2021 COMPARISON: NONE HISTORY: Pain FINDINGS: Three views of the ankle demonstrate the ankle mortise to be intact and symmetric. The joint spaces are preserved. There is a deformity involving the talar dome. IMPRESSION: 1. 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 Recommend follow-up MRI..
--- NOTE | 2021-10-21 11:05 | XR ---
EXAMINATION TYPE: XR wrist complete LT DATE OF EXAM: 10/21/2021 CLINICAL HISTORY: pain TECHNIQUE: Frontal, lateral and oblique images of the left wrist are obtained. COMPARISON: None. FINDINGS: There is no acute fracture/dislocation evident. The joint spaces appear within normal morgan its. The overlying soft tissue appears unremarkable. IMPRESSION: There is no acute fracture or dislocation seen. ICD 10 NO FRACTURE, INITIAL EVALUATION
--- NOTE | 2021-10-21 11:06 | XR ---
EXAMINATION TYPE: XR chest 1V DATE OF EXAM: 10/21/2021 COMPARISON: 12/30/2019 HISTORY: Pain TECHNIQUE: Single frontal view of the chest is obtained. FINDINGS: There is no focal air space opacity, pleural effusion, or pneumothorax seen. The cardiac silhouette size is within normal limits. The osseous structures are intact. IMPRESSION: No acute process.
--- NOTE | 2021-10-21 11:06 | XR ---
EXAMINATION TYPE: XR lumbar spine 2 or 3V DATE OF EXAM: 10/21/2021 CLINICAL HISTORY: pain TECHNIQUE: Three views of the lumbar spine are submitted. COMPARISON: None. FINDINGS: There are 5 lumbar type vertebral bodies identified. The lumbar spine shows satisfactory alignment w ithout evidence of acute fracture or dislocation. Vertebral body heights are within normal limits. Disc spaces are within normal limits. The overlying soft tissue appears unremarkable. IMPRESSION: No acute fracture or dislocation is seen in the lumbar spine. ICD 10 NO FRACTURE, INITIAL EVALUATION
[2021-10-21] MEDS ORDERED: ACET/COD 300 MG/30 MG STARTER PACK 6 TAB BTL PO STA (11:37)
== END 2021-10-21 11:54 | disposition home or self-care (01) ==
LOC: EC 09:51
DX: S93.401A Sprain of unspecified ligament of right ankle, initial encounter (principal); S20.219A Contusion of unspecified front wall of thorax, initial encounter; S30.0XXA Contusion of lower back and pelvis, initial encounter; F12.90 Cannabis use, unspecified, uncomplicated; Y09 Assault by unspecified means
CPT/HCPCS: 71045; 72100; 99284

== ENCOUNTER 2024-11-09 11:37 | Emergency (ER) | payer OTHER ==
--- NOTE | 2024-11-09 12:26 | ED ---
Nausea/Vomiting/Diarrhea HPI - General Chief complaint: Nausea/Vomiting/Diarrhea Stated complaint: numbness/puking blood/sob Time Seen by Provider: 11/09/24 12:09 Source: patient, RN notes reviewed Mode of arrival: ambulatory Limitations: no limitations - History of Present Illness Initial comments: This is a 28-year-old male with a history of H. pylori and ventral hernia presenting to the emergency department for complaint of hematemesis, diffuse abdominal pain over the past 10 hours. Patient states that since 3 AM this morning he has been having persistent nausea and vomiting and has been unable to keep down foods. He endorses diffuse abdominal pain. Reports chills. Denies chest pain, shortness of breath, heart palpitations, rhinorrhea, congestion, cough. Previous surgical abdominal history of hernia repair. This is social marijuana use. Denies alcohol use. Patient states that he began taking new supplements yesterday evening including co-Q10 and Marisa root and thinks this may be a factor of his symptoms. - Related Data Home Medications Medication Instructions Recorded Confirmed No Known Home Medications 11/09/24 11/09/24 Allergies Allergy/AdvReac Type Severity Reaction Status Date / Time No Known Allergies Allergy Verified 11/09/24 14:17 Review of Systems ROS Statement: Those systems with pertinent positive or pertinent negative responses have been documented in the HPI. ROS Other: All systems not noted in ROS Statement are negative. Past Medical History Past Medical History: GI Bleed, Osteoarthritis (OA) Additional Past Medical History / Comment(s): Upper GI bleed, past PUD, past migraines, arthritis in nancy ankles History of Any Multi-Drug Resistant Organisms: C-DIFF Date of last positivie culture/infection: 2013 MDRO Source:: stool Past Surgical History: Hernia Repair, Orthopedic Surgery Additional Past Surgical History / Comment(s): R ankle arthroscopic surgery to remove cartlidge, L inguinal hernia repair with mesh. Past Anesthesia/Blood Transfusion Reactions: Motion Sickness Past Psychological History: No Psychological Hx Reported Smoking Status: Never smoker Past Alcohol Use History: None Reported Past Drug Use History: Marijuana - Past Family History Mother Family Medical History: No Reported History Additional Family Medical History / Comment(s): Mother has mental health issues. Father Family Medical History: CVA/TIA Additional Family Medical History / Comment(s): Father has possible had a CVA General Exam Limitations: no limitations General appearance: alert, in no apparent distress Neck exam: Present: normal inspection. Absent: tenderness, meningismus, lymphadenopathy Respiratory exam: Present: normal lung sounds bilaterally. Absent: respiratory distress, wheezes, rales, rhonchi, stridor Cardiovascular Exam: Present: regular rate, normal rhythm, normal heart sounds. Absent: systolic murmur, diastolic murmur, rubs, gallop, clicks GI/Abdominal exam: Present: soft, tenderness (epigastric), normal bowel sounds. Absent: distended, guarding, rebound, rigid Extremities exam: Present: normal inspection, full ROM, normal capillary refill. Absent: tenderness, pedal edema, joint swelling, calf tenderness Back exam: Present: normal inspection Skin exam: Present: warm, dry, intact, normal color. Absent: rash Course Vital Signs 11/09/24 11:51 Temperature 100.0 F H Pulse Rate 94 Respiratory 20 Rate Blood Pressure 119/78 O2 Sat by Pulse 100 Oximetry Medical Decision Making - Medical Decision Making Was pt. sent in by a medical professional or institution (Dr. PA, HYDROGRAPHIC SURVEYOR, urgent care, hospital, or care home...) When possible be specific @ -No Did you speak to anyone other than the patient for history (EMS, parent, family, police, friend...)? What history was obtained from this source @ -No Did you review nursing and triage notes (agree or disagree)? Why? @ -I reviewed and agree with nursing and triage notes Were old charts reviewed (outside hosp., previous admission, EMS record, old EKG, old radiological studies, urgent care reports/EKG's, care home records)? Report findings @ -No old charts were reviewed Differential Diagnosis (chest pain, altered mental status, abdominal pain women, abdominal pain men, vaginal bleeding, weakness, fever, dyspnea, syncope, headache, dizziness, GI bleed, back pain, seizure, CVA, palpatations, mental health, musculoskeletal)? @ -Differential Abdominal Pain Men: Appendicitis, cholecystitis, diverticulosis, ischemic bowel, pancreatitis, hepatitis, UTI, gastroenteritis, AAA, incarcerated hernia, bowel obstruction, constipation, inflammatory bowel, hepatitis, peptic ulcer disease, splenic infarction, perforated viscus, testicular torsion, this is not meant to be an all-inclusive list EKG interpreted by me (3pts min.). @ -none X-rays interpreted by me (1pt min.). @ -XR KUB no evidence of acute process CT interpreted by me (1pt min.). @ -None done U/S interpreted by me (1pt. min.). @ -None done What testing was considered but not performed or refused? (CT, X-rays, U/S, labs)? Why? @ -None What meds were considered but not given or refused? Why? @ -None Did you discuss the management of the patient with other professionals (professionals i.e. , PA, HYDROGRAPHIC SURVEYOR, lab, RT, psych nurse, social media intern, alum plant supervisor, teacher, [employer]oc airspace control officer, family preservation caseworker)? Give summary @ -No Was smoking cessation discussed for >3mins.? @ -No Was critical care preformed (if so, how long)? @ -No Were there social determinants of health that impacted care today? How? (Homelessness, low income, unemployed, alcoholism, drug addiction, transportation, low edu. Level, literacy, decrease access to med. care, custodial, rehab)? @ -No Was there de-escalation of care discussed even if they declined (Discuss DNR or withdrawal of care, Hospice)? DNR status @ -No What co-morbidities impacted this encounter? (DM, HTN, Smoking, COPD, CAD, Cancer, CVA, ARF, Chemo, Hep., AIDS, mental health diagnosis, sleep apnea, morbid obesity)? @ -None Was patient admitted / discharged? Hospital course, mention meds given and route, prescriptions, significant lab abnormalities, going to OR and other pertinent info. @ -Discharge. 28-year-old male presenting with nausea, vomiting, past abdominal pain. On evaluation patient noted to be mildly anxious at medical condition states that he does have baseline anxiety. He is noted to have a fever of 100.0 on arrival. Tenderness to palpation of the epigastric. He is provided with IV fluids, antiemetics, and laboratory results and x-ray.. Labs unremarkable including CBC, CMP, viral panel. X-rays unremarkable. And reevaluation after medication ministration patient states that he is feeling markedly better abdominal pain is resolved and nausea has resolved. Patient has had no episodes of emesis while in the emergency department. His hemoglobin is stable. He is offered outpatient prescription for Zofran however still at this time. R ecommend he continue Tylenol Motrin as needed for fevers in addition to following a liquid over the next 24 hours and symptoms likely secondary to gastroenteritis. Discussed with Dr. Kang Undiagnosed new problem with uncertain prognosis? @ -No Drug Therapy requiring intensive monitoring for toxicity (Heparin, Nitro, Insulin, Cardizem)? @ -No Were any procedures done? @ -No Diagnosis/symptom? @ -gastroenteritis Acute, or Chronic, or Acute on Chronic? @ -Acute Uncomplicated (without systemic symptoms) or Complicated (systemic symptoms)? @ -uncomplicated Side effects of treatment? @ -No Exacerbation, Progression, or Severe Exacerbation? @ -No Poses a threat to life or bodily function? How? (Chest pain, USA, IA, pneumonia, PE, COPD, DKA, ARF, appy, cholecystitis, CVA, Diverticulitis, Homicidal, Suicidal, threat to staff... and all critical care pts) @ -No - Lab Data Result diagrams: 11/09/24 12:32 11/09/24 12:32 Lab Results 11/09/24 11/09/24 11/09/24 Range/Units 12:32 12:32 12:32 WBC 8.9 (3.8-10.6) k/uL RBC 5.36 (4.30-5.90) m/uL Hgb 16.2 (13.0-17.5) gm/dL Hct 47.4 (39.0-53.0) % MCV 88.5 (80.0-100.0) fL MCH 30.1 (25.0-35.0) pg MCHC 34.0 (31.0-37.0) g/dL RDW 12.6 (11.5-15.5) % Plt Count 187 (150-450) k/uL MPV 7.4 Neutrophils % 90 % Lymphocytes % 4 % Monocytes % 4 % Eosinophils % 1 % Basophils % 0 % Neutrophils # 7.9 H (1.3-7.7) k/uL Lymphocytes # 0.4 L (1.0-4.8) k/uL Monocytes # 0.4 (0-1.0) k/uL Eosinophils # 0.1 (0-0.7) k/uL Basophils # 0.0 (0-0.2) k/uL Sodium 138 (137-145) mmol/L Potassium 4.0 (3.5-5.1) mmol/L Chloride 104 (98-107) mmol/L Carbon Dioxide 22 (22-30) mmol/L Anion Gap 12 mmol/L BUN 12 (9-20) mg/dL Creatinine 0.74 (0.66-1.25) mg/dL Est GFR (CKD-EPI)AfAm >90 (>60 ml/min/1.73 sqM) Est GFR (CKD-EPI)NonAf >90 (>60 ml/min/1.73 sqM) Glucose 123 H (74-99) mg/dL Calcium 9.6 (8.4-10.2) mg/dL Total Bilirubin 1.1 (0.2-1.3) mg/dL AST 16 L (17-59) U/L ALT 15 (4-49) U/L Alkaline Phosphatase 72 (38-126) U/L Total Protein 6.9 (6.3-8.2) g/dL Albumin 4.7 (3.5-5.0) g/dL Amylase 78 (30-110) U/L Lipase 61 (23-300) U/L Influenza Type A (PCR) Not Detected (Not Detectd) Influenza Type B (PCR) Not Detected (Not Detectd) RSV (PCR) Not Detected (Not Detectd) SARS-CoV-2 (PCR) Not Detected (Not Detectd) Disposition Clinical Impression: Gastroenteritis, Nausea and vomiting Disposition: HOME SELF-CARE Condition: Good Instructions (If sedation given, give patient instructions): Gastroenteritis (DC) Additional Instructions: Please return to the Emergency Department if symptoms worsen or any other concerns. Recommend that you continue to follow a clear liquid diet over the next 24 hours after slowly reintroducing foods such as bananas, rice, applesauce, toast. Is patient prescribed a controlled substance at d/c from ED?: No Referrals: Kamaljit Martinez DO [Primary Care Provider] - 1-2 days Time of Disposition: 14:06
[2024-11-09] MEDS: ONDANSETRON 4 MG/2 ML VIAL IVP STA (12:35)
[2024-11-09] MEDS: SODIUM CHLORIDE 0.9% 1,000 ML IV STA (12:37)
[2024-11-09] MEDS: ACETAMINOPHEN TAB 500 MG TAB PO STA (12:37)
[2024-11-09 12:41] LABS: Basophils % (A) 0 %; Eosinophils # (A) 0.1 k/uL (0-0.7); Eosinophils % (A) 1 %; HCT 47.4 % (39.0-53.0); HGB 16.2 gm/dL (13.0-17.5); Lymphocytes # (A) 0.4 k/uL (1.0-4.8); Lymphocytes % (A) 4 %; MCH 30.1 pg (25.0-35.0); MCV 88.5 fL (80.0-100.0); Mean Platelet Volume 7.4; Monocytes # (A) 0.4 k/uL (0-1.0); Monocytes % (A) 4 %; Neutrophils # (A) 7.9 k/uL (1.3-7.7); Neutrophils % (A) 90 %; Platelet Count 187 k/uL (150-450); RBC 5.36 m/uL (4.30-5.90); RDW 12.6 % (11.5-15.5); WBC 8.9 k/uL (3.8-10.6)
[2024-11-09 12:50] LABS: ALT 15 U/L (4-49); AST 16 U/L (17-59); African American GFR (CKD) >90 (>60 ml/min/1.73 sqM); Albumin 4.7 g/dL (3.5-5.0); Alkaline Phosphatase 72 U/L (38-126); Amylase 78 U/L (30-110); Anion Gap 12 mmol/L; Blood Urea Nitrogen 12 mg/dL (9-20); Calcium 9.6 mg/dL (8.4-10.2); Carbon Dioxide 22 mmol/L (22-30); Chloride 104 mmol/L (98-107); Glucose 123 mg/dL (74-99); Lipase 61 U/L (23-300); Non-African American GFR(CKD) >90 (>60 ml/min/1.73 sqM); Sodium 138 mmol/L (137-145); Total Bilirubin 1.1 mg/dL (0.2-1.3); Total Protein 6.9 g/dL (6.3-8.2)
[2024-11-09 13:17] LABS: Influenza A Not Detected (Not Detectd); Influenza B Not Detected (Not Detectd); RSV Not Detected (Not Detectd)
--- NOTE | 2024-11-09 14:02 | XR ---
EXAMINATION TYPE: XR KUB DATE OF EXAM: 11/09/2024 1:04 PM COMPARISON: 08/07/2014 CLINICAL INDICATION: Male, 28 years old with history of N/V/ab pain; H TECHNIQUE: One radiographic view of the abdomen was obtained. FINDINGS: The bowel gas pattern is nonspecific without dilated loops of small or large bowel. . Fecal material and gas are demonstrated throughout the colon and rectum. There is no evidence for organome beryl or pneumoperitoneum. No acute osseous process. No abnormal calcifications are present. IMPRESSION: Nonspecific bowel gas pattern without radiographic evidence for acute process. [facility] Anushka Spaulding, , 11/09/2024 1:59 PM
[2024-11-09 14:30] VITALS: BP 112/74; PULSE 83; RESP 16; TEMP 99.3
== END 2024-11-09 14:36 | disposition home or self-care (01) ==
LOC: EC 11:37
DX: K52.9 Noninfective gastroenteritis and colitis, unspecified (principal)
CPT/HCPCS: 36415; 80053; 82150; 83690; 85025; 87636; 74018; 99284; 96374; 96361; J2405